=== PATIENT | female | born 1995 | race Caucasian/White ===

== ENCOUNTER 2017-05-21 04:15 | Emergency (ER) | payer BC, OTHER ==
[~2017-05-21] VITALS: Ht 157.5 cm; Wt 65.4 kg
[~2017-05-21 04:15] MED LIST: RISPERDAL0.5 MG PO; TAMIFLU75 MG PO; VENLAFAXINE225 MG PO
[2017-05-21] MEDS ORDERED: SOLARCAINE ALO TP (04:43)
[2017-05-21 05:20] VITALS: BP 159/93
== END 2017-05-21 05:22 | disposition home or self-care (01) ==
LOC: EME 04:15
DX: L55.0 Sunburn of first degree (principal); L40.9 Psoriasis, unspecified; F17.200 Nicotine dependence, unspecified, uncomplicated
CPT/HCPCS: 99281; 99283

== ENCOUNTER 2017-06-15 06:44 | Emergency (ER) | payer BC, OTHER ==
[~2017-06-15] VITALS: Ht 157.5 cm; Wt 63.0 kg
[~2017-06-15 06:44] MED LIST changes: +SOLARCAINE ALO TP
[2017-06-15] MEDS ORDERED: FIORICET WI1 CAPSULE PO (08:15)
[2017-06-15 08:32] VITALS: BP 113/76
== END 2017-06-15 08:33 | disposition home or self-care (01) ==
LOC: EME 06:44
DX: G43.909 Migraine, unspecified, not intractable, without status migrainosus (principal); J45.909 Unspecified asthma, uncomplicated; F17.200 Nicotine dependence, unspecified, uncomplicated
CPT/HCPCS: 99281; 99284; J1885; J2765; J7030

== ENCOUNTER 2017-11-05 08:01 | Emergency (ER) | payer BC, OTHER ==
[~2017-11-05] VITALS: Ht 157.5 cm; Wt 66.9 kg
[~2017-11-05 08:01] MED LIST changes: +FIORICET WI1 CAPSULE PO
[2017-11-05] MEDS ORDERED: FIORICET 50-301 EAC1 PO (11:29)
[2017-11-05 11:50] VITALS: BP 101/56
== END 2017-11-05 11:50 | disposition home or self-care (01) ==
LOC: EME 08:01
DX: G43.909 Migraine, unspecified, not intractable, without status migrainosus (principal); L40.9 Psoriasis, unspecified; F17.200 Nicotine dependence, unspecified, uncomplicated
CPT/HCPCS: 99281; 99284; J1885

== ENCOUNTER 2018-01-24 02:15 | Emergency (ER) | payer BC ==
[~2018-01-24] VITALS: Ht 157.5 cm; Wt 64.2 kg
[~2018-01-24 02:15] MED LIST changes: +FIORICET 50-301 EAC1 PO
[2018-01-24 03:08] LABS: BASOPHIL (%) 0.3 % (0-1); EOSINOPHIL (%) 5.6 % (0-5); EOSINOPHIL COUNT 0.5 K/uL (0-0.3); HEMATOCRIT 40.7 % (36.0-46.0); HEMOGLOBIN 13.3 G/DL (11.9-15.5); IMMATURE GRANULOCYTE (%) 0.1 % (0.0-0.7); LYMPHOCYTE (%) 37.1 % (15-42); LYMPHOCYTE COUNT 3.2 K/uL (1.0-2.8); MCH 29.7 PG (29.0-34.0); MCHC 32.7 G/DL (30.0-36.0); MCV 90.8 FL (83-99); MONOCYTE (%) 7.4 % (3-12); MONOCYTE COUNT 0.7 K/uL (0-0.8); NEUTROPHIL (%) 49.5 % (45-76); NEUTROPHIL COUNT 4.3 K/uL (1.8-6.4); PLATELET COUNT 172 K/uL (156-360); RBC DIS.WIDTH-SD 46.8 % (39-53); RED BLOOD COUNT 4.48 M/uL (3.80-5.20); WHITE BLOOD COUNT 8.7 K/uL (4.1-10.2)
[2018-01-24 03:25] LABS: CHLORIDE 105 mEq/L (99-109); POTASSIUM 3.5 mEq/L (3.7-5.4); SODIUM 140 mEq/L (136-147)
[2018-01-24 03:26] LABS: GLUCOSE 96 mg/dL (70-99)
[2018-01-24 03:30] LABS: CREATININE 0.8 mg/dL (0.6-1.3); GFR ESTIMATE (CALCULATED) > 59 mL/min/
[2018-01-24 03:31] LABS: UREA NITROGEN (BUN) 12 mg/dL (9-23)
[2018-01-24 05:10] VITALS: BP 109/65
== END 2018-01-24 05:18 | disposition home or self-care (01) ==
LOC: EME 02:15
PROVIDERS: Emergency Medicine
DX: G43.909 Migraine, unspecified, not intractable, without status migrainosus (principal); L40.9 Psoriasis, unspecified; F17.200 Nicotine dependence, unspecified, uncomplicated
CPT/HCPCS: 80048; 85025; 99281; 99285; J1100; J1200; J1885; J2765; J7030

== ENCOUNTER 2018-02-15 23:50 | Emergency (ER) | payer BC ==
[~2018-02-15] VITALS: Ht 157.5 cm; Wt 63.6 kg
[2018-02-16 03:05] VITALS: BP 106/71
== END 2018-02-16 03:05 | disposition home or self-care (01) ==
LOC: EME 23:50
DX: G43.909 Migraine, unspecified, not intractable, without status migrainosus (principal); L40.9 Psoriasis, unspecified; F17.200 Nicotine dependence, unspecified, uncomplicated
CPT/HCPCS: 99281; 99284; J1200; J1885

== ENCOUNTER 2018-05-22 06:36 | Emergency (ER) | payer BC ==
[~2018-05-22] VITALS: Ht 157.5 cm; Wt 62.6 kg
[2018-05-22] MEDS ORDERED: FIORICET,ESG1 TABLET PO (08:14)
[2018-05-22 08:24] VITALS: BP 128/87
== END 2018-05-22 08:25 | disposition home or self-care (01) ==
LOC: EME 06:36
DX: G43.909 Migraine, unspecified, not intractable, without status migrainosus (principal); L40.9 Psoriasis, unspecified; F17.200 Nicotine dependence, unspecified, uncomplicated
CPT/HCPCS: 99281; 99284; J1200; J1885; J2765; J7030